=== PATIENT | male | born 1960 | race African-American/Black ===

== ENCOUNTER 2022-04-18 13:45 | Inpatient (IN) | payer OTHER ==
[~2022-04-18] VITALS: Ht 172.7 cm; Wt 109.5 kg
[2022-04-18 04:00] VITALS: BP 122/83
[2022-04-18 15:39] LABS: HEMATOCRIT. 30.7 % (42.0-52.0); HEMOGLOBIN. 10.2 g/dL (14.0-18.0); MEAN CORPUSCULAR HEMOGLOBIN 25.5 pg (28.0-32.0); MEAN CORPUSCULAR VOLUME 76.8 fL (80.0-94.0); MEAN PLATELET VOLUME 7.3 fl (7.4-10.4); PLATELET 204 x1000/uL (130-400); RED CELL DISTRIBUTION WIDTH 16.7 % (11.6-14.6)
[2022-04-18 15:49] LABS: CHLORIDE 106 mEq/L (98-107)
[2022-04-18] MEDS ORDERED: INSULIN REGULAR (HUMULIN R) 300UNITS/3ML VIAL IV ONE (16:30)
[2022-04-18] MEDS ORDERED: ALBUTEROL (0.083%) 2.5MG/3ML NEB HHN ONE (16:30)
[2022-04-18] MEDS ORDERED: SODIUM BICARBONATE 8.4% 1 MEQ/ML 50ML SYR IV ONE (16:30)
[2022-04-18] MEDS ORDERED: CALCIUM CHLORIDE 1GM/10ML SYR IV ONE (16:30)
[2022-04-18] MEDS ORDERED: DEXTROSE 50% WATER 50ML SYRINGE IV ONE (16:30)
[2022-04-18 18:26] LABS: BG BASE EXCESS -20.4 mmol/L (-2.0-2.0); BG CARBOXYHEMOGLOBIN 0.4 % (0.5-1.5); BG DEOXYHEMOGLOBIN 8.6 % (0.0-5.0); BG FRACTION INSPIRED OXYGEN 44; BG HCO3 ACT 5.4 mmol/L (22.0-26.0); BG OXYGEN SATURATION 91.4 % (92.0-98.5); BG PCO2 14.1 mmHg (35.0-45.0); BG PH 7.199 (7.350-7.450); BG PO2 69.6 mmHg (75.0-100.0); BG SAMPLE SITE RIGHT RADIAL; BG TOTAL HEMOGLOBIN 11.4 g/dL (12.0-18.0); BG VENT MODE NASAL CANNULA
[2022-04-18 18:26] LABS: PLATELET ESTIMATE NORMAL
[2022-04-18 18:50] LABS: BG BASE EXCESS -18.7 mmol/L (-2.0-2.0); BG CARBOXYHEMOGLOBIN 0.2 % (0.5-1.5); BG DEOXYHEMOGLOBIN 7.3 % (0.0-5.0); BG FRACTION INSPIRED OXYGEN 44; BG HCO3 ACT 6.8 mmol/L (22.0-26.0); BG METHEMOGLOBIN 0.1 % (0.0-1.5); BG OXYGEN SATURATION 92.7 % (92.0-98.5); BG OXYHEMOGLOBIN 92.4 % (94.0-97.0); BG PCO2 16.6 mmHg (35.0-45.0); BG PH 7.229 (7.350-7.450); BG PO2 76.3 mmHg (75.0-100.0); BG SAMPLE SITE RIGHT RADIAL; BG TOTAL HEMOGLOBIN 10.7 g/dL (12.0-18.0); BG VENT MODE NASAL CANNULA
[2022-04-18] MEDS ORDERED: DOCUSATE SODIUM 100MG CAPSULE PO PRN (22:00)
[2022-04-18] MEDS ORDERED: AMLODIPINE 5MG TABLET PO SCH (22:00)
[2022-04-18] MEDS ORDERED: IPRATROPIUM/ALBUTEROL 0.5-3(2.5)MG/3ML NEB HHN PRN (22:00)
[2022-04-18] MEDS ORDERED: DEXTROSE 50% WATER 50ML SYRINGE IV PRN (22:00)
[2022-04-18] MEDS ORDERED: ZOLPIDEM TARTRATE 5MG TABLET PO PRN (22:00)
[2022-04-18] MEDS ORDERED: LORAZEPAM 0.5MG TABLET PO PRN (22:00)
[2022-04-18] MEDS ORDERED: ONDANSETRON HCL 4MG/2ML INJ IV PRN ×2 (22:00→23:00)
[2022-04-18] MEDS ORDERED: VANCOMYCIN 1G PREMIX 200 ML IV NR (22:00)
[2022-04-18] MEDS ORDERED: CLONIDINE 0.1MG TABLET PO PRN (22:00)
[2022-04-18] MEDS ORDERED: PIPERACILLIN/TAZ 3.375G PREMIX 50 ML IV SCH (22:00)
[2022-04-18 22:21] LABS: CHLORIDE 105 mEq/L (98-107)
[2022-04-18] MEDS ORDERED: CALCIUM GLUCONATE 100MG/ML 10ML VIAL IV NR (22:45)
[2022-04-18] MEDS ORDERED: SODIUM POLYSTYRENE SULFONATE 15 G/60 ML BOT PO NR (23:00)
[2022-04-18] MEDS ORDERED: ACETAMINOPHEN 325MG TABLET PO PRN (23:00)
[2022-04-18] MEDS ORDERED: PIPERACILLIN/TAZOBACTAM 3.375 G in DEXTROSE 5% WATER 50 ML IV SCH (23:00)
[2022-04-18] MEDS ORDERED: ENOXAPARIN 30MG/0.3ML SYR SUBCUT SCH (23:00)
[2022-04-18] MEDS ORDERED: SODIUM BICARBONATE 8.4% 1 MEQ/ML 50ML SYR IV NR (23:15)
[2022-04-19] VITALS (20 sets, daily range): BP systolic 88–192; BP diastolic 37–135
[2022-04-19 00:03] LABS: T4 FREE 1.01 ng/dL (0.76-1.46)
[2022-04-19 00:09] LABS: CREATINE KINASE MB FRACTION 25.9 ng/mL (0.5-3.6)
[2022-04-19 00:20] LABS: VITAMIN B12 SERUM >2000 pg/mL pg/mL (211-911)
[2022-04-19 01:28] LABS: PHOSPHORUS 5.8 mg/dL (2.5-4.9)
[2022-04-19 01:39] LABS: HEPATITIS B SURFACE AB 4.9 mIU/mL
[2022-04-19 01:50] LABS: HEPATITIS B SURFACE ANTIGEN NEGATIVE
[2022-04-19] MEDS ORDERED: AMLODIPINE 10MG TABLET PO NR (02:00)
[2022-04-19] MEDS: LORAZEPAM 2MG/ML CPJ IV PRN (02:19)
[2022-04-19 03:19] LABS: HEMATOCRIT 29.1 % (42.0-52.0); HEMOGLOBIN 9.7 g/dL (14.0-18.0); MEAN CORPUSCULAR HEMOGLOBIN 25.5 pg (28.0-32.0); MEAN CORPUSCULAR VOLUME 76.7 fL (80.0-94.0); PLATELET 195 x1000/uL (130-400); RED BLOOD CELL COUNT 3.79 mill/uL (4.7-6.1); RED CELL DISTRIBUTION WIDTH 16.4 % (11.6-14.6)
[2022-04-19] MEDS ORDERED: CALCIUM GLUCONATE 100MG/ML 10ML VIAL IV ONE (04:15)
[2022-04-19] MEDS ORDERED: SODIUM POLYSTYRENE SULFONATE 15 G/60 ML BOT PO NR (04:15)
[2022-04-19] MEDS ORDERED: CALCIUM GLUCONATE 1GM PREMIX 50 ML IV NR (05:00)
[2022-04-19 05:47] LABS: CREATINE KINASE MB FRACTION 28.6 ng/mL (0.5-3.6); PHOSPHORUS 5.3 mg/dL (2.5-4.9)
[2022-04-19] MEDS: INSULIN LISPRO 100 UNITS/ML SUBCUT SCH ×4 (07:10→21:00)
[2022-04-19] MEDS: BLOOD SUGAR DIAGNOSTIC STRIP TEST SCH ×4 (07:29→21:40)
[2022-04-19] MEDS: PANTOPRAZOLE 40MG DR TABLET PO SCH (07:30)
[2022-04-19] MEDS ORDERED: ENOXAPARIN 40MG/0.4ML SYR SUBCUT SCH (09:00)
[2022-04-19] MEDS ORDERED: SODIUM BICARBONATE 8.4% 1 MEQ/ML 50ML SYR IV SCH (11:00)
[2022-04-19] MEDS: CEFTRIAXONE 1,000 MG in DEXTROSE 5% WATER 50 ML IV SCH (14:26)
[2022-04-19] MEDS: AZITHROMYCIN 500 MG in DEXT 5% WATER 250 ML IV SCH (14:26)
[2022-04-19] MEDS: AMLODIPINE 10MG TABLET PO SCH (14:27)
[2022-04-19] MEDS ORDERED: ALBUTEROL (0.083%) 2.5MG/3ML NEB HHN PRN (16:15)
[2022-04-19] MEDS ORDERED: IPRATROPIUM BROMIDE (0.02%) 0.5MG/2.5ML NEB HHN PRN (16:15)
[2022-04-19 18:43] LABS: BG BASE EXCESS -8.4 mmol/L (-2.0-2.0); BG CARBOXYHEMOGLOBIN 0.3 % (0.5-1.5); BG DEOXYHEMOGLOBIN 10.1 % (0.0-5.0); BG FRACTION INSPIRED OXYGEN 44; BG HCO3 ACT 14.2 mmol/L (22.0-26.0); BG METHEMOGLOBIN 0.2 % (0.0-1.5); BG OXYGEN SATURATION 89.8 % (92.0-98.5); BG OXYHEMOGLOBIN 89.4 % (94.0-97.0); BG PCO2 21.1 mmHg (35.0-45.0); BG PH 7.445 (7.350-7.450); BG PO2 60.9 mmHg (75.0-100.0); BG SAMPLE SITE LEFT RADIAL; BG TOTAL HEMOGLOBIN 9.5 g/dL (12.0-18.0); BG VENT MODE NASAL CANNULA
[2022-04-19] MEDS ORDERED: SODIUM BICARBONATE 8.4% 1 MEQ/ML 50ML SYR IV NR (18:45)
[2022-04-19] MEDS ORDERED: ALBUTEROL 6.7GM HFA INHALER ORI PRN (23:45)
[2022-04-20] VITALS (69 sets, daily range): BP systolic 57–148; BP diastolic 24–119
[2022-04-20 05:38] LABS: HEMATOCRIT 25.1 % (42.0-52.0); HEMOGLOBIN 8.6 g/dL (14.0-18.0); MEAN CORPUSCULAR HEMOGLOBIN 25.3 pg (28.0-32.0); MEAN CORPUSCULAR VOLUME 74.1 fL (80.0-94.0); PLATELET 174 x1000/uL (130-400); RED BLOOD CELL COUNT 3.39 mill/uL (4.7-6.1); RED CELL DISTRIBUTION WIDTH 16.2 % (11.6-14.6)
[2022-04-20] MEDS: BLOOD SUGAR DIAGNOSTIC STRIP TEST SCH ×4 (06:07→21:52)
[2022-04-20] MEDS: PANTOPRAZOLE 40MG DR TABLET PO SCH (06:08)
[2022-04-20] MEDS: INSULIN LISPRO 100 UNITS/ML SUBCUT SCH ×4 (06:08→21:00)
[2022-04-20 06:23] LABS: PHOSPHORUS 7.6 mg/dL (2.5-4.9)
[2022-04-20] MEDS: AMLODIPINE 10MG TABLET PO SCH (08:01)
[2022-04-20] MEDS: ENOXAPARIN 40MG/0.4ML SYR SUBCUT SCH (08:02)
[2022-04-20] MEDS ORDERED: PHENYLEPHRINE 100 MG in DEXT 5% WATER 240 ML IV PRN (09:30)
[2022-04-20 09:54] LABS: BG CARBOXYHEMOGLOBIN 0.3 % (0.5-1.5); BG DEOXYHEMOGLOBIN 2.7 % (0.0-5.0); BG FRACTION INSPIRED OXYGEN 100; BG HCO3 ACT 13.8 mmol/L (22.0-26.0); BG METHEMOGLOBIN 0.3 % (0.0-1.5); BG OXYGEN SATURATION 97.3 % (92.0-98.5); BG OXYHEMOGLOBIN 96.7 % (94.0-97.0); BG PCO2 20.5 mmHg (35.0-45.0); BG PH 7.445 (7.350-7.450); BG PO2 111.3 mmHg (75.0-100.0); BG SAMPLE SITE RIGHT RADIAL; BG VENT MODE HIGH FLOW
[2022-04-20] MEDS: CEFTRIAXONE 1,000 MG in DEXTROSE 5% WATER 50 ML IV SCH (11:29)
[2022-04-20] MEDS: AZITHROMYCIN 500 MG in DEXT 5% WATER 250 ML IV SCH (11:29)
[2022-04-20] MEDS ORDERED: DEXAMETHASONE 4MG TABLET PO SCH (11:45)
[2022-04-20] MEDS: PIPERACILLIN/TAZOBACTAM 3.375 G in DEXTROSE 5% WATER 50 ML IV SCH ×2 (12:42→23:42)
[2022-04-20] MEDS ORDERED: VANCOMYCIN 750MG PREMIX 150 ML IV SCH (13:00)
[2022-04-20] MEDS ORDERED: MAGNESIUM 2 G PREMIX 50 ML IV NR (15:00)
[2022-04-21] VITALS (33 sets, daily range): BP systolic 112–172; BP diastolic 48–104
[2022-04-21] MEDS: LORAZEPAM 2MG/ML CPJ IV PRN (00:49)
[2022-04-21 05:28] LABS: HEMATOCRIT 21.7 % (42.0-52.0); HEMOGLOBIN 7.3 g/dL (14.0-18.0); MEAN CORPUSCULAR HEMOGLOBIN 25.3 pg (28.0-32.0); MEAN CORPUSCULAR VOLUME 75.1 fL (80.0-94.0); PLATELET 224 x1000/uL (130-400); RED BLOOD CELL COUNT 2.89 mill/uL (4.7-6.1); RED CELL DISTRIBUTION WIDTH 16.2 % (11.6-14.6)
[2022-04-21] MEDS: BLOOD SUGAR DIAGNOSTIC STRIP TEST SCH ×4 (06:31→21:00)
[2022-04-21] MEDS: PANTOPRAZOLE 40MG DR TABLET PO SCH (06:33)
[2022-04-21] MEDS: INSULIN LISPRO 100 UNITS/ML SUBCUT SCH ×4 (06:34→21:19)
[2022-04-21 07:19] LABS: PHOSPHORUS 8.4 mg/dL (2.5-4.9)
[2022-04-21] MEDS: DEXAMETHASONE 6MG TABLET PO SCH (09:16)
[2022-04-21] MEDS: PIPERACILLIN/TAZOBACTAM 3.375 G in DEXTROSE 5% WATER 50 ML IV SCH ×2 (09:16→21:19)
[2022-04-21] MEDS: AMLODIPINE 10MG TABLET PO SCH (09:17)
[2022-04-21] MEDS: ENOXAPARIN 40MG/0.4ML SYR SUBCUT SCH (09:17)
[2022-04-21] MEDS: CALCIUM ACETATE 667MG CAPSULE PO SCH ×3 (09:17→17:51)
[2022-04-21] MEDS: GUAIFENESIN 200MG/10ML SUGAR FREE UDC PO PRN (15:45)
[2022-04-21] MEDS: AZITHROMYCIN 500 MG in DEXT 5% WATER 250 ML IV SCH (17:51)
[2022-04-22] VITALS (43 sets, daily range): BP systolic 96–201; BP diastolic 54–179
[2022-04-22 05:33] LABS: HEMATOCRIT 27.7 % (42.0-52.0); HEMOGLOBIN 9.5 g/dL (14.0-18.0); MEAN CORPUSCULAR HEMOGLOBIN 26.5 pg (28.0-32.0); MEAN CORPUSCULAR VOLUME 77.4 fL (80.0-94.0); PLATELET 229 x1000/uL (130-400); RED BLOOD CELL COUNT 3.58 mill/uL (4.7-6.1); RED CELL DISTRIBUTION WIDTH 16.9 % (11.6-14.6)
[2022-04-22 05:59] LABS: PHOSPHORUS 7.4 mg/dL (2.5-4.9)
[2022-04-22] MEDS: BLOOD SUGAR DIAGNOSTIC STRIP TEST SCH ×4 (06:13→21:56)
[2022-04-22] MEDS: CALCIUM ACETATE 667MG CAPSULE PO SCH ×3 (06:15→18:44)
[2022-04-22] MEDS: INSULIN LISPRO 100 UNITS/ML SUBCUT SCH ×4 (06:15→21:00)
[2022-04-22] MEDS: PANTOPRAZOLE 40MG DR TABLET PO SCH (06:15)
[2022-04-22] MEDS: PIPERACILLIN/TAZOBACTAM 3.375 G in DEXTROSE 5% WATER 50 ML IV SCH ×2 (08:29→20:42)
[2022-04-22] MEDS: ENOXAPARIN 40MG/0.4ML SYR SUBCUT SCH (08:30)
[2022-04-22] MEDS: AMLODIPINE 10MG TABLET PO SCH (08:32)
[2022-04-22] MEDS: DEXAMETHASONE 6MG TABLET PO SCH (08:32)
[2022-04-22] MEDS: AZITHROMYCIN 500 MG in DEXT 5% WATER 250 ML IV SCH (18:44)
[2022-04-22] MEDS: GUAIFENESIN 600MG ER TABLET PO SCH (20:42)
[2022-04-22] MEDS: GUAIFENESIN 200MG/10ML SUGAR FREE UDC PO PRN (20:42)
[2022-04-23] VITALS (35 sets, daily range): BP systolic 99–168; BP diastolic 65–103
[2022-04-23] MEDS: BLOOD SUGAR DIAGNOSTIC STRIP TEST SCH ×4 (05:28→20:40)
[2022-04-23 05:35] LABS: MEAN CORPUSCULAR HEMOGLOBIN 26.2 pg (28.0-32.0); MEAN CORPUSCULAR VOLUME 78.2 fL (80.0-94.0); PLATELET 260 x1000/uL (130-400); RED BLOOD CELL COUNT 3.45 mill/uL (4.7-6.1); RED CELL DISTRIBUTION WIDTH 16.5 % (11.6-14.6)
[2022-04-23] MEDS: PANTOPRAZOLE 40MG DR TABLET PO SCH (06:04)
[2022-04-23] MEDS: CALCIUM ACETATE 667MG CAPSULE PO SCH ×3 (06:04→17:58)
[2022-04-23 06:27] LABS: PHOSPHORUS 5.8 mg/dL (2.5-4.9)
[2022-04-23] MEDS: INSULIN LISPRO 100 UNITS/ML SUBCUT SCH ×4 (06:40→21:34)
[2022-04-23 07:08] LABS: HIV SCREEN 4G Non Reactive (Non Reactive)
[2022-04-23] MEDS: ENOXAPARIN 40MG/0.4ML SYR SUBCUT SCH (08:10)
[2022-04-23] MEDS: PIPERACILLIN/TAZOBACTAM 3.375 G in DEXTROSE 5% WATER 50 ML IV SCH ×2 (08:10→21:32)
[2022-04-23] MEDS: GUAIFENESIN 600MG ER TABLET PO SCH (08:11)
[2022-04-23] MEDS: AMLODIPINE 10MG TABLET PO SCH (08:11)
[2022-04-23] MEDS: DEXAMETHASONE 6MG TABLET PO SCH (08:11)
[2022-04-23] MEDS ORDERED: LOPERAMIDE HCL 2MG CAPSULE PO PRN (10:00)
[2022-04-23] MEDS: AZITHROMYCIN 500 MG in DEXT 5% WATER 250 ML IV SCH (17:58)
[2022-04-24] VITALS (14 sets, daily range): BP systolic 88–144; BP diastolic 42–95
[2022-04-24] MEDS: BLOOD SUGAR DIAGNOSTIC STRIP TEST SCH ×4 (05:55→20:26)
[2022-04-24] MEDS: INSULIN LISPRO 100 UNITS/ML SUBCUT SCH ×4 (05:56→20:26)
[2022-04-24] MEDS: CALCIUM ACETATE 667MG CAPSULE PO SCH ×3 (06:19→17:10)
[2022-04-24] MEDS: PANTOPRAZOLE 40MG DR TABLET PO SCH (06:19)
[2022-04-24 07:06] LABS: HEMATOCRIT 31.2 % (42.0-52.0); HEMOGLOBIN 10.2 g/dL (14.0-18.0); MEAN CORPUSCULAR HEMOGLOBIN 26.1 pg (28.0-32.0); MEAN CORPUSCULAR VOLUME 79.5 fL (80.0-94.0); PLATELET 256 x1000/uL (130-400); RED BLOOD CELL COUNT 3.93 mill/uL (4.7-6.1); RED CELL DISTRIBUTION WIDTH 16.6 % (11.6-14.6)
[2022-04-24] MEDS: PIPERACILLIN/TAZOBACTAM 3.375 G in DEXTROSE 5% WATER 50 ML IV SCH ×2 (09:28→20:24)
[2022-04-24] MEDS: ENOXAPARIN 40MG/0.4ML SYR SUBCUT SCH (09:28)
[2022-04-24] MEDS: DEXAMETHASONE 6MG TABLET PO SCH (09:29)
[2022-04-24] MEDS: AMLODIPINE 10MG TABLET PO SCH (09:29)
[2022-04-24 10:03] LABS: PHOSPHORUS 5.7 mg/dL (2.5-4.9)
[2022-04-24] MEDS: AZITHROMYCIN 500 MG in DEXT 5% WATER 250 ML IV SCH (18:12)
[2022-04-24] MEDS: ZOLPIDEM TARTRATE 5MG TABLET PO PRN (21:26)
[2022-04-25] VITALS (14 sets, daily range): BP systolic 97–160; BP diastolic 60–95
[2022-04-25 04:43] LABS: HEMATOCRIT 30.7 % (42.0-52.0); HEMOGLOBIN 10.2 g/dL (14.0-18.0); MEAN CORPUSCULAR HEMOGLOBIN 26.3 pg (28.0-32.0); MEAN CORPUSCULAR VOLUME 79.3 fL (80.0-94.0); PLATELET 264 x1000/uL (130-400); RED BLOOD CELL COUNT 3.88 mill/uL (4.7-6.1); RED CELL DISTRIBUTION WIDTH 16.4 % (11.6-14.6)
[2022-04-25 04:53] LABS: PHOSPHORUS 6.2 mg/dL (2.5-4.9)
[2022-04-25] MEDS: BLOOD SUGAR DIAGNOSTIC STRIP TEST SCH ×4 (05:52→20:05)
[2022-04-25] MEDS: INSULIN LISPRO 100 UNITS/ML SUBCUT SCH ×4 (05:52→20:07)
[2022-04-25] MEDS: CALCIUM ACETATE 667MG CAPSULE PO SCH ×3 (06:28→18:29)
[2022-04-25] MEDS: PIPERACILLIN/TAZOBACTAM 3.375 G in DEXTROSE 5% WATER 50 ML IV SCH ×2 (08:25→20:06)
[2022-04-25] MEDS: AMLODIPINE 10MG TABLET PO SCH (08:26)
[2022-04-25] MEDS: FAMOTIDINE 20MG TABLET PO SCH (08:26)
[2022-04-25] MEDS: DEXAMETHASONE 6MG TABLET PO SCH (08:26)
[2022-04-25] MEDS: LORAZEPAM 2MG/ML CPJ IV PRN ×2 (08:26→12:56)
[2022-04-25] MEDS: ENOXAPARIN 40MG/0.4ML SYR SUBCUT SCH (08:27)
[2022-04-25 11:14] LABS: BG BASE EXCESS -5.6 mmol/L (-2.0-2.0); BG CARBOXYHEMOGLOBIN 0.3 % (0.5-1.5); BG DEOXYHEMOGLOBIN 4.2 % (0.0-5.0); BG FRACTION INSPIRED OXYGEN 50; BG HCO3 ACT 17.7 mmol/L (22.0-26.0); BG METHEMOGLOBIN 0.2 % (0.0-1.5); BG OXYGEN SATURATION 95.8 % (92.0-98.5); BG OXYHEMOGLOBIN 95.3 % (94.0-97.0); BG PCO2 27.7 mmHg (35.0-45.0); BG PH 7.424 (7.350-7.450); BG PO2 87.5 mmHg (75.0-100.0); BG SAMPLE SITE RIGHT RADIAL; BG TOTAL HEMOGLOBIN 9.9 g/dL (12.0-18.0); BG VENT MODE HIGH FLOW
[2022-04-25 13:58] LABS: INR 1.1; PARTIAL THROMBOPLASTIN TIME 28.3 sec (23.4-31.0); PROTHROMBIN TIME 11.4 sec (9.6-11.0)
[2022-04-25] MEDS ORDERED: HALOPERIDOL LACTATE 5MG/ML VIAL IM PRN (14:45)
[2022-04-25] MEDS ORDERED: IPRATROPIUM/ALBUTEROL 0.5-3(2.5)MG/3ML NEB HHN PRN (15:30)
[2022-04-25] MEDS ORDERED: IPRATROPIUM BROMIDE (0.02%) 0.5MG/2.5ML NEB HHN PRN (15:45)
[2022-04-25] MEDS ORDERED: ALBUTEROL (0.083%) 2.5MG/3ML NEB HHN PRN (15:45)
[2022-04-25] MEDS: LORAZEPAM 0.5MG TABLET PO PRN (16:53)
[2022-04-25] MEDS ORDERED: IPRATROPIUM/ALBUTEROL 0.5-3(2.5)MG/3ML NEB HHN SCH (18:00)
[2022-04-25] MEDS: AZITHROMYCIN 500 MG in DEXT 5% WATER 250 ML IV SCH (18:53)
[2022-04-25] MEDS: IPRATROPIUM BROMIDE (0.02%) 0.5MG/2.5ML NEB HHN SCH (21:01)
[2022-04-25] MEDS: ALBUTEROL (0.083%) 2.5MG/3ML NEB HHN SCH (21:01)
[2022-04-26] VITALS: BP 146/72
[2022-04-26] MEDS: ZOLPIDEM TARTRATE 5MG TABLET PO PRN ×2 (00:40→23:31)
[2022-04-26] MEDS: IPRATROPIUM BROMIDE (0.02%) 0.5MG/2.5ML NEB HHN SCH ×4 (01:47→20:22)
[2022-04-26] MEDS: ALBUTEROL (0.083%) 2.5MG/3ML NEB HHN SCH ×4 (01:47→20:22)
[2022-04-26 04:00] VITALS: BP 116/76
[2022-04-26] MEDS: BLOOD SUGAR DIAGNOSTIC STRIP TEST SCH ×4 (05:44→21:34)
[2022-04-26] MEDS: INSULIN LISPRO 100 UNITS/ML SUBCUT SCH ×4 (05:45→21:55)
[2022-04-26] MEDS: CALCIUM ACETATE 667MG CAPSULE PO SCH ×3 (06:16→17:02)
[2022-04-26 07:51] LABS: MEAN CORPUSCULAR HEMOGLOBIN 26.1 pg (28.0-32.0); MEAN CORPUSCULAR VOLUME 78.7 fL (80.0-94.0); MEAN PLATELET VOLUME 6.8 fl (7.4-10.4); PLATELET 238 x1000/uL (130-400); RED BLOOD CELL COUNT 3.81 mill/uL (4.7-6.1); RED CELL DISTRIBUTION WIDTH 16.5 % (11.6-14.6)
[2022-04-26 08:00] VITALS: BP 122/70
[2022-04-26] MEDS: DEXAMETHASONE 6MG TABLET PO SCH (08:41)
[2022-04-26] MEDS: GUAIFENESIN-DM 200MG-20MG/10ML UDC PO PRN ×2 (08:41→21:57)
[2022-04-26] MEDS: ENOXAPARIN 40MG/0.4ML SYR SUBCUT SCH (08:41)
[2022-04-26] MEDS: PIPERACILLIN/TAZOBACTAM 3.375 G in DEXTROSE 5% WATER 50 ML IV SCH ×2 (08:41→21:56)
[2022-04-26] MEDS: AMLODIPINE 10MG TABLET PO SCH (08:42)
[2022-04-26] MEDS: FAMOTIDINE 20MG TABLET PO SCH (08:48)
[2022-04-26] MEDS: LORAZEPAM 0.5MG TABLET PO PRN (08:58)
[2022-04-26 09:05] LABS: PHOSPHORUS 6.7 mg/dL (2.5-4.9)
[2022-04-26] MEDS ORDERED: POTASSIUM CHLORIDE 20MEQ/PACKET PO NR (10:15)
[2022-04-26 12:00] VITALS: BP 100/55
[2022-04-26 14:53] LABS: PLATELET ESTIMATE NORMAL
[2022-04-26 16:00] VITALS: BP 105/54
[2022-04-26 20:00] VITALS: BP 136/60
[2022-04-27] VITALS (15 sets, daily range): BP systolic 87–130; BP diastolic 32–81
[2022-04-27] MEDS: IPRATROPIUM BROMIDE (0.02%) 0.5MG/2.5ML NEB HHN SCH ×3 (03:09→20:21)
[2022-04-27] MEDS: ALBUTEROL (0.083%) 2.5MG/3ML NEB HHN SCH ×4 (03:10→20:21)
[2022-04-27 05:44] LABS: HEMATOCRIT. 26.7 % (42.0-52.0); HEMOGLOBIN. 8.9 g/dL (14.0-18.0); MEAN CORPUSCULAR HEMOGLOBIN 26.3 pg (28.0-32.0); MEAN CORPUSCULAR VOLUME 79.1 fL (80.0-94.0); MEAN PLATELET VOLUME 7.1 fl (7.4-10.4); PLATELET 220 x1000/uL (130-400); RED BLOOD CELL COUNT 3.37 mill/uL (4.7-6.1); RED CELL DISTRIBUTION WIDTH 16.4 % (11.6-14.6)
[2022-04-27] MEDS: BLOOD SUGAR DIAGNOSTIC STRIP TEST SCH ×4 (05:49→21:00)
[2022-04-27] MEDS: CALCIUM ACETATE 667MG CAPSULE PO SCH ×3 (05:57→17:19)
[2022-04-27 06:12] LABS: PHOSPHORUS 7.2 mg/dL (2.5-4.9)
[2022-04-27] MEDS: INSULIN LISPRO 100 UNITS/ML SUBCUT SCH ×4 (07:10→22:17)
[2022-04-27 11:29] LABS: PLATELET ESTIMATE NORMAL
[2022-04-27] MEDS: PIPERACILLIN/TAZOBACTAM 3.375 G in DEXTROSE 5% WATER 50 ML IV SCH (12:24)
[2022-04-27] MEDS: DEXAMETHASONE 6MG TABLET PO SCH (12:24)
[2022-04-27] MEDS: ENOXAPARIN 40MG/0.4ML SYR SUBCUT SCH (12:24)
[2022-04-27] MEDS: FAMOTIDINE 20MG TABLET PO SCH (12:25)
[2022-04-27] MEDS: AMLODIPINE 10MG TABLET PO SCH (12:43)
[2022-04-27] MEDS: GUAIFENESIN-DM 200MG-20MG/10ML UDC PO PRN (14:16)
[2022-04-27] MEDS: ZOLPIDEM TARTRATE 5MG TABLET PO PRN (22:09)
[2022-04-27] MEDS: MIRTAZAPINE 15MG TABLET PO SCH (22:09)
[2022-04-27] MEDS: CEFEPIME 1,000 MG in DEXTROSE 5% WATER 50 ML IV SCH (22:18)
[2022-04-28] VITALS: BP_SYST 103; BP_SYST 113; BP_DIAS 61; BP_DIAS 68
[2022-04-28] MEDS: ALBUTEROL (0.083%) 2.5MG/3ML NEB HHN SCH ×4 (01:28→21:38)
[2022-04-28] MEDS: IPRATROPIUM BROMIDE (0.02%) 0.5MG/2.5ML NEB HHN SCH ×4 (01:29→21:38)
[2022-04-28 04:00] VITALS: BP 120/70
[2022-04-28 06:16] LABS: HEMATOCRIT. 24.4 % (42.0-52.0); HEMOGLOBIN. 8.2 g/dL (14.0-18.0); MEAN CORPUSCULAR HEMOGLOBIN 26.4 pg (28.0-32.0); MEAN CORPUSCULAR VOLUME 79.1 fL (80.0-94.0); MEAN PLATELET VOLUME 7.2 fl (7.4-10.4); PLATELET 222 x1000/uL (130-400); RED BLOOD CELL COUNT 3.09 mill/uL (4.7-6.1); RED CELL DISTRIBUTION WIDTH 16.9 % (11.6-14.6)
[2022-04-28] MEDS: BLOOD SUGAR DIAGNOSTIC STRIP TEST SCH ×4 (06:32→20:27)
[2022-04-28] MEDS: CALCIUM ACETATE 667MG CAPSULE PO SCH ×3 (06:34→16:46)
[2022-04-28] MEDS: INSULIN LISPRO 100 UNITS/ML SUBCUT SCH ×4 (07:07→21:19)
[2022-04-28 08:00] VITALS: BP 121/57
[2022-04-28 09:17] LABS: PHOSPHORUS 6.1 mg/dL (2.5-4.9)
[2022-04-28] MEDS: DEXAMETHASONE 6MG TABLET PO SCH (09:35)
[2022-04-28] MEDS: FAMOTIDINE 20MG TABLET PO SCH (09:35)
[2022-04-28] MEDS: AMLODIPINE 10MG TABLET PO SCH (09:35)
[2022-04-28] MEDS: ENOXAPARIN 40MG/0.4ML SYR SUBCUT SCH (09:35)
[2022-04-28 12:00] VITALS: BP 110/63
[2022-04-28 15:39] LABS: BG BASE EXCESS -7.7 mmol/L (-2.0-2.0); BG DEOXYHEMOGLOBIN 10.9 % (0.0-5.0); BG FRACTION INSPIRED OXYGEN 21; BG HCO3 ACT 15.7 mmol/L (22.0-26.0); BG OXYGEN SATURATION 89.1 % (92.0-98.5); BG OXYHEMOGLOBIN 89.1 % (94.0-97.0); BG PCO2 25.1 mmHg (35.0-45.0); BG PH 7.415 (7.350-7.450); BG PO2 62.6 mmHg (75.0-100.0); BG SAMPLE SITE RIGHT BRACHIAL; BG VENT MODE ROOM AIR
[2022-04-28 16:00] VITALS: BP 113/54
[2022-04-28 16:47] LABS: PLATELET ESTIMATE NORMAL
[2022-04-28] MEDS: CEFEPIME 1,000 MG in DEXTROSE 5% WATER 50 ML IV SCH (17:44)
[2022-04-28 20:00] VITALS: BP 139/68
[2022-04-28] MEDS: MIRTAZAPINE 15MG TABLET PO SCH (21:18)
[2022-04-28] MEDS: GUAIFENESIN-DM 200MG-20MG/10ML UDC PO PRN (21:35)
[2022-04-28] MEDS: ZOLPIDEM TARTRATE 5MG TABLET PO PRN (21:35)
[2022-04-29] VITALS (10 sets, daily range): BP systolic 103–145; BP diastolic 54–76
[2022-04-29] MEDS: IPRATROPIUM BROMIDE (0.02%) 0.5MG/2.5ML NEB HHN SCH ×4 (02:02→19:53)
[2022-04-29] MEDS: ALBUTEROL (0.083%) 2.5MG/3ML NEB HHN SCH ×4 (02:02→19:54)
[2022-04-29] MEDS: BLOOD SUGAR DIAGNOSTIC STRIP TEST SCH ×4 (06:11→20:17)
[2022-04-29] MEDS: GUAIFENESIN-DM 200MG-20MG/10ML UDC PO PRN ×2 (06:30→21:17)
[2022-04-29] MEDS: INSULIN LISPRO 100 UNITS/ML SUBCUT SCH ×4 (06:31→20:32)
[2022-04-29 06:57] LABS: HEMATOCRIT 23.9 % (42.0-52.0); HEMOGLOBIN 7.9 g/dL (14.0-18.0); MEAN CORPUSCULAR HEMOGLOBIN 26.5 pg (28.0-32.0); MEAN CORPUSCULAR VOLUME 80.5 fL (80.0-94.0); PLATELET 249 x1000/uL (130-400); RED BLOOD CELL COUNT 2.97 mill/uL (4.7-6.1); RED CELL DISTRIBUTION WIDTH 17.4 % (11.6-14.6)
[2022-04-29] MEDS: FAMOTIDINE 20MG TABLET PO SCH (09:01)
[2022-04-29] MEDS: ENOXAPARIN 40MG/0.4ML SYR SUBCUT SCH (09:01)
[2022-04-29] MEDS: CALCIUM ACETATE 667MG CAPSULE PO SCH ×3 (09:02→17:34)
[2022-04-29] MEDS: AMLODIPINE 10MG TABLET PO SCH (09:02)
[2022-04-29] MEDS: DEXAMETHASONE 6MG TABLET PO SCH (09:02)
[2022-04-29 11:45] LABS: PHOSPHORUS 7.3 mg/dL (2.5-4.9)
[2022-04-29] MEDS: CEFEPIME 1,000 MG in DEXTROSE 5% WATER 50 ML IV SCH (17:34)
[2022-04-29] MEDS: MIRTAZAPINE 15MG TABLET PO SCH (20:23)
[2022-04-29] MEDS: ZOLPIDEM TARTRATE 5MG TABLET PO PRN (20:23)
[2022-04-30] VITALS: BP 117/50
[2022-04-30] MEDS: GUAIFENESIN-DM 200MG-20MG/10ML UDC PO PRN ×3 (01:32→21:08)
[2022-04-30] MEDS: IPRATROPIUM BROMIDE (0.02%) 0.5MG/2.5ML NEB HHN SCH ×3 (01:48→13:41)
[2022-04-30] MEDS: ALBUTEROL (0.083%) 2.5MG/3ML NEB HHN SCH ×3 (01:48→13:42)
[2022-04-30 04:00] VITALS: BP 112/55
[2022-04-30] MEDS: BLOOD SUGAR DIAGNOSTIC STRIP TEST SCH ×4 (05:17→21:00)
[2022-04-30] MEDS: INSULIN LISPRO 100 UNITS/ML SUBCUT SCH ×4 (05:27→21:31)
[2022-04-30 07:29] LABS: HEMATOCRIT. 27.3 % (42.0-52.0); MEAN CORPUSCULAR HEMOGLOBIN 26.5 pg (28.0-32.0); MEAN CORPUSCULAR VOLUME 80.8 fL (80.0-94.0); MEAN PLATELET VOLUME 7.2 fl (7.4-10.4); PLATELET 286 x1000/uL (130-400); RED BLOOD CELL COUNT 3.38 mill/uL (4.7-6.1)
[2022-04-30 08:00] VITALS: BP 137/59
[2022-04-30 08:37] LABS: CHLORIDE 103 mEq/L (98-107)
[2022-04-30 08:52] LABS: PHOSPHORUS 6.5 mg/dL (2.5-4.9)
[2022-04-30] MEDS: AMLODIPINE 10MG TABLET PO SCH (09:08)
[2022-04-30] MEDS: CALCIUM ACETATE 667MG CAPSULE PO SCH ×3 (09:08→17:26)
[2022-04-30] MEDS: FAMOTIDINE 20MG TABLET PO SCH (09:08)
[2022-04-30] MEDS: ENOXAPARIN 40MG/0.4ML SYR SUBCUT SCH (09:08)
[2022-04-30 12:00] VITALS: BP 125/53
[2022-04-30 16:00] VITALS: BP 107/66
[2022-04-30] MEDS: CEFEPIME 1,000 MG in DEXTROSE 5% WATER 50 ML IV SCH (17:30)
[2022-04-30 20:00] VITALS: BP 135/53
[2022-04-30 20:24] LABS: PLATELET ESTIMATE NORMAL
[2022-04-30] MEDS: GUAIFENESIN 600MG ER TABLET PO SCH (21:10)
[2022-04-30] MEDS: MIRTAZAPINE 15MG TABLET PO SCH (21:47)
[2022-05-01] VITALS (10 sets, daily range): BP systolic 106–134; BP diastolic 54–92
[2022-05-01] MEDS: BLOOD SUGAR DIAGNOSTIC STRIP TEST SCH ×4 (06:18→21:00)
[2022-05-01] MEDS: INSULIN LISPRO 100 UNITS/ML SUBCUT SCH ×4 (06:18→21:00)
[2022-05-01] MEDS: CALCIUM ACETATE 667MG CAPSULE PO SCH ×3 (07:16→17:46)
[2022-05-01] MEDS: FAMOTIDINE 20MG TABLET PO SCH (08:36)
[2022-05-01] MEDS: ENOXAPARIN 40MG/0.4ML SYR SUBCUT SCH (08:36)
[2022-05-01] MEDS: AMLODIPINE 10MG TABLET PO SCH (08:37)
[2022-05-01] MEDS ORDERED: AMLO10TA80 PO (15:48)
[2022-05-01] MEDS ORDERED: TUSSL PO (15:48)
[2022-05-01] MEDS ORDERED: MIRT-89 PO (15:48)
[2022-05-01] MEDS ORDERED: CALC667C PO (15:48)
[2022-05-01] MEDS: GUAIFENESIN-DM 200MG-20MG/10ML UDC PO PRN (17:00)
[2022-05-01] MEDS: CEFEPIME 1,000 MG in DEXTROSE 5% WATER 50 ML IV SCH (18:49)
[2022-05-01] MEDS: GUAIFENESIN 600MG ER TABLET PO SCH (20:44)
[2022-05-01] MEDS: MIRTAZAPINE 15MG TABLET PO SCH (20:44)
[2022-05-02] VITALS: BP 112/60
[2022-05-02 04:00] VITALS: BP 120/70
[2022-05-02] MEDS: BLOOD SUGAR DIAGNOSTIC STRIP TEST SCH ×2 (05:48→11:40)
[2022-05-02] MEDS: INSULIN LISPRO 100 UNITS/ML SUBCUT SCH ×2 (05:48→12:10)
[2022-05-02 08:00] VITALS: BP 132/61
[2022-05-02] MEDS: FAMOTIDINE 20MG TABLET PO SCH (08:47)
[2022-05-02] MEDS: CALCIUM ACETATE 667MG CAPSULE PO SCH ×2 (08:47→13:18)
[2022-05-02] MEDS: ENOXAPARIN 40MG/0.4ML SYR SUBCUT SCH (08:48)
[2022-05-02] MEDS: GUAIFENESIN 600MG ER TABLET PO SCH (08:48)
== END 2022-05-02 15:15 | disposition home health service (06) | DRG 871 ==
LOC: ER 13:45 → EDBEDREQ 17:32 → EDBEDREQTM 17:32 → EDBEDREQ 18:57 → 7EST 19:02 → MICUSO 04-19 20:09 → 7EST 04-23 20:30
PROVIDERS: ADMIT Internal Medicine; ATTEND Internal Medicine
PROC: 02HV33Z Insertion of Infusion Device into Superior Vena Cava, Percutaneous Approach (ICD-10-PCS; principal; 2022-04-19)
PROC: B548ZZA Ultrasonography of Superior Vena Cava, Guidance (ICD-10-PCS; 2022-04-19)
PROC: 5A1D70Z Performance of Urinary Filtration, Intermittent, Less than 6 Hours Per Day (ICD-10-PCS; 2022-04-19)
PROC: 5A0945A Assistance with Respiratory Ventilation, 24-96 Consecutive Hours, High Flow/Velocity Cannula (ICD-10-PCS; 2022-04-20)
PROC: 5A1D70Z Performance of Urinary Filtration, Intermittent, Less than 6 Hours Per Day (ICD-10-PCS; 2022-04-20)
PROC: 30233N1 Transfusion of Nonautologous Red Blood Cells into Peripheral Vein, Percutaneous Approach (ICD-10-PCS; 2022-04-21)
PROC: 5A1D70Z Performance of Urinary Filtration, Intermittent, Less than 6 Hours Per Day (ICD-10-PCS; 2022-04-21)
PROC: 5A1D70Z Performance of Urinary Filtration, Intermittent, Less than 6 Hours Per Day (ICD-10-PCS; 2022-04-22)
PROC: 5A1D70Z Performance of Urinary Filtration, Intermittent, Less than 6 Hours Per Day (ICD-10-PCS; 2022-04-23)
PROC: 5A0935A Assistance with Respiratory Ventilation, Less than 24 Consecutive Hours, High Flow/Velocity Cannula (ICD-10-PCS; 2022-04-24)
PROC: 5A1D70Z Performance of Urinary Filtration, Intermittent, Less than 6 Hours Per Day (ICD-10-PCS; 2022-04-24)
PROC: 5A1D70Z Performance of Urinary Filtration, Intermittent, Less than 6 Hours Per Day (ICD-10-PCS; 2022-04-25)
PROC: 5A0935A Assistance with Respiratory Ventilation, Less than 24 Consecutive Hours, High Flow/Velocity Cannula (ICD-10-PCS; 2022-04-25)
PROC: 5A0935A Assistance with Respiratory Ventilation, Less than 24 Consecutive Hours, High Flow/Velocity Cannula (ICD-10-PCS; 2022-04-26)
PROC: 5A1D70Z Performance of Urinary Filtration, Intermittent, Less than 6 Hours Per Day (ICD-10-PCS; 2022-04-27)
PROC: 5A1D70Z Performance of Urinary Filtration, Intermittent, Less than 6 Hours Per Day (ICD-10-PCS; 2022-04-29)
PROC: 5A1D70Z Performance of Urinary Filtration, Intermittent, Less than 6 Hours Per Day (ICD-10-PCS; 2022-05-01)
DX: A41.89 Other specified sepsis (principal); G92.8 Other toxic encephalopathy; J12.82 Pneumonia due to coronavirus disease 2019; N18.6 End stage renal disease; U07.1 COVID-19; J96.01 Acute respiratory failure with hypoxia; E87.1 Hypo-osmolality and hyponatremia; N17.9 Acute kidney failure, unspecified; I12.0 Hypertensive chronic kidney disease with stage 5 chronic kidney disease or end stage renal disease; E44.1 Mild protein-calorie malnutrition; E87.4 Mixed disorder of acid-base balance; M62.82 Rhabdomyolysis; E11.22 Type 2 diabetes mellitus with diabetic chronic kidney disease; E11.65 Type 2 diabetes mellitus with hyperglycemia; D50.9 Iron deficiency anemia, unspecified; D63.8 Anemia in other chronic diseases classified elsewhere; E78.00 Pure hypercholesterolemia, unspecified; E83.39 Other disorders of phosphorus metabolism; E87.5 Hyperkalemia; E87.70 Fluid overload, unspecified; R79.89 Other specified abnormal findings of blood chemistry; G47.00 Insomnia, unspecified; E78.5 Hyperlipidemia, unspecified; R33.9 Retention of urine, unspecified; F41.9 Anxiety disorder, unspecified; Z91.199 Patient's noncompliance with other medical treatment and regimen due to unspecified reason; Z99.2 Dependence on renal dialysis; I69.30 Unspecified sequelae of cerebral infarction; Z78.9 Other specified health status; Z82.49 Family history of ischemic heart disease and other diseases of the circulatory system; Z68.36 Body mass index [BMI] 36.0-36.9, adult
CPT/HCPCS: 36415; 36556; 36600; 71045; 76770; 76937; 78580; 80048; 80053; 80061; 80202; 82375; 82550; 82553; 82607; 82746; 82805; 82962; 83036; 83540; 83550; 83605; 83735; 83880; 83970; 84100; 84145; 84439; 84443; 84484; 85025; 85027; 85379; 86038; 86705; 86706; 86709; 86803; 86850; 86900; 86920; 87340; 87389; 87426; 90935; 93005; 93306; 93970; 94618; 94640; 94660; 97116; 97162; 97166; 99291; A6261; C1752; C1760; C9803; J0456; J0610; J0692; J0696; J1630; J1650; J1815; J2060; J2370; J2543; J3370; J3475; J3490; J7060; J8540; P9016; A4315